=== PATIENT | male | born 1960 | race Caucasian/White ===

== ENCOUNTER 2018-07-15 10:43 | Inpatient (IN) | payer OTHER ==
[2018-07-15 11:22] VITALS: BMI 35.0
--- NOTE | 2018-07-15 14:56 | PN ---
[facility] CIWA - CIWA Score Nausea/Vomitin-No Nausea/No Vomiting Muscle Tremors: 2 Anxiety: 4-Mod. Anxious/Guarded Agitation: 2 Paroxysmal Sweats: No Perspiration Orientation: 0-Oriented Tacttile Disturbances: 3-Moderate Itch/Numb/Burn Auditory Disturbances: 0-None Visual Disturbances: 0-None Headache: 2-Mild CIWA-Ar Total Score: 13
--- NOTE | 2018-07-15 15:03 | HP ---
CIWA Score Nausea/Vomitin-No Nausea/No Vomiting Muscle Tremors: 2 Anxiety: 4-Mod. Anxious/Guarded Agitation: 3 Paroxysmal Sweats: No Perspiration Orientation: 0-Oriented Tacttile Disturbances: 3-Moderate Itch/Numb/Burn Auditory Disturbances: 0-None Visual Disturbances: 0-None Headache: 2-Mild CIWA-Ar Total Score: 14 - Admission Criteria OASAS Guidelines: Admission for Medically Managed Detox: Requires at least one of the followin. CIWA greater than 12 2. Seizures within the past 24 hours 3. Delirium tremens within the past 24 hours 4. Hallucinations within the past 24 hours 5. Acute intervention needed for co occurring medical disorder 6. Acute intervention needed for co occurring psychiatric disorder 7. Severe withdrawal that cannot be handled at a lower level of care (continued vomiting, continued diarrhea, abnormal vital signs) requiring intravenous medication and/or fluids 8. Admission ROS [facility] Chief Complaint: XANAX WITHDRAWAL SYMPTOMS. Allergies/Adverse Reactions: Allergies Allergy/AdvReac Type Severity Reaction Status Date / Time No Known Allergies Allergy Verified 07/15/18 13:17 History of Present Illness: PATIENT PRESENTS WITH XANAX WITHDRAWAL SYMPTOMS. PATIENT WAS PRESCRIBED KLONIPIN IN PAST FOR ANXIETY, LAST PRESCRIPTION MONTHS AGO. PATIENT STATED MEDICATION WAS NOT RELIEVING ALL SYMPTOMS SO HE BEGAN BUYING NON-PRESCRIBED XANAX. PATIENT TAKES UP TO 8MG DAILY. PATIENT'S LAST DOSE OF XANAX WAS THIS MORNING. PATIENT ALSO ON MTD PROGRAM AT [facility]. PATIENT HAS SEALED DOSE OF 34 MG OF MTD WITH HIM-DOSE VERIFIED BY RN. PATIENT DID NOT TAKE DOSE HE FORGOT AFTER TAKING XANAX. THIS IS PATIENT'S FIRST ADMISSION TO DETOX HERE AT [facility]. PATIENT PMH INCLUDES PERIPHERAL NEUROPATHY, INSOMNIA, DM, HTN, VIT B 12 DEFICIENCY, AFOGNAK, ANXIETY AND DEPRESSION. DENIES SI/HI AND SUICIDE ATTEMPTS. PATIENT DENIES HX OF SEIZURES, FALLS AND OVERDOSE. Exam Limitations: No Limitations - Ebola screening Have you traveled outside of the country in the last 21 days: No Have you had contact with anyone from an Ebola affected area: No Have you been sick,other than usual withdrawal symptoms: No Do you have a fever: No - Review of Systems Constitutional: Chills, Night Sweats, Changes in sleep EENT: reports: Nose Congestion Respiratory: reports: No Symptoms reported Cardiac: reports: Palpitations GI: reports: Poor Fluid Intake : reports: No Symptoms Reported Musculoskeletal: reports: Back Pain, Muscle Pain Integumentary: reports: No Symptoms Reported Neuro: reports: Headache, Numbness, Tingling, Tremors Endocrine: reports: No Symptoms Reported Hematology: reports: No Symptoms Reported Psychiatric: reports: Orientated x3, Anxious, Depressed Patient History - Patient Medical History Hx Anemia: Yes (B12 DEFICIENCY) Hx Asthma: No Hx Chronic Obstructive Pulmonary Disease (COPD): No Hx Cancer: No Hx Cardiac Disorders: No Hx Congestive Heart Failure: No Hx Hypertension: Yes (ON MEDS) Hx Hypercholesterolemia: No Hx Pacemaker: No HX Cerebrovascular Accident: No Hx Seizures: No Hx Dementia: No Hx Diabetes: Yes Hx Gastrointestinal Disorders: Yes (GI ULCERS) Hx Liver Disease: No Hx Genitourinary Disorders: No Hx Sexually Transmitted Disorders: No Hx Renal Disease (ESRD): No Hx Thyroid Disease: No Hx Human Immunodeficiency Virus (HIV): No Hx Hepatitis C: No Hx Depression: Yes Hx Suicide Attempt: No Hx Bipolar Disorder: No Hx Schizophrenia: No - Patient Surgical History Past Surgical History: Yes Hx Neurologic Surgery: No Hx Cataract Extraction: No Hx Cardiac Surgery: No Hx Lung Surgery: No Hx Breast Surgery: No Hx Breast Biopsy: No Hx Abdominal Surgery: No Hx Appendectomy: No Hx Cholecystectomy: No Hx Genitourinary Surgery: No Hx Orthopedic Surgery: No Other Surgical History: 3 ABDOMINAL BLEEDING ULCERS Anesthesia Reaction: No - PPD History Previous Implant?: Yes Documented Results: Negative w/o proof PPD to be Administered?: Yes - Smoking Cessation Smoking history: Current every day smoker Have you smoked in the past 12 months: Yes Aproximately how many cigarettes per day: 20 Hx Chewing Tobacco Use: No Initiated information on smoking cessation: Yes 'Breaking Loose' booklet given: 07/15/18 - Substance & Tx. History Hx Alcohol Use: No Hx Substance Use: Yes Substance Use Type: Prescribed, Tranquilizers Hx Substance Use Treatment: Yes (MTD PROGRAM AT [facility]) - Substances Abused Alprazolam (Xanax) Route: Oral Frequency: Daily Amount used: 2-3 TABS Age of first use: 24 Date of Last Use: 07/14/18 Family Disease History - Family Disease History Family History: Unable to Obtain Admission Physical Exam BHS - Vital Signs Vital Signs: Vital Signs - 24 hr 07/15/18 11:12 Temperature 97.4 F L Pulse Rate 75 Respiratory 20 Rate Blood Pressure 158/82 - Physical General Appearance: Yes: Appropriately Dressed, Tremorous, Irritable, Anxious HEENTM: Yes: EOMI, Normocephalic, MARSHALL, Pharynx Normal, Other (AFOGNAK) Respiratory: Yes: Chest Non-Tender, Lungs Clear, Normal Breath Sounds, No Respiratory Distress, No Accessory Muscle Use Neck: Yes: No masses,lesions,Nodules Breast: Yes: Breast Exam Deferred Cardiology: Yes: Regular Rhythm, Regular Rate, S1, S2 Abdominal: Yes: Normal Bowel Sounds, Non Tender, Soft Genitourinary: Yes: Within Normal Limits Back: Yes: Normal Inspection, Muscle Spasm Musculoskeletal: Yes: Back pain, Muscle Pain, Other (UNSTEADY GAIT) Extremities: Yes: Normal Inspection, Non-Tender, Tremors Neurological: Yes: convalescent sitter II-XII NML intact, Fully Oriented, Alert, Motor Strength 5/5, Normal Response, Numbness, Depressed Affect Integumentary: Yes: Normal Color, Dry, Warm Lymphatic: Yes: Within Normal Limits Cleared for Admission [facility] - Detox or Rehab [facility] Level of Care: Medically Managed Detox Regimen/Protocol: Valium [facility] Breath Alcohol Content Breath Alcohol Content: 0 Urine Drug Screen - Results Drug Screen Negative: No Urine Drug Screen Results: OPI-Opiates, BZO-Benzodiazepines, MTD-Methadone
[2018-07-15] MEDS ORDERED: NICOTINE POLACRILEX 2 MG GUM BC PRN (15:19)
[2018-07-15] MEDS ORDERED: ACETAMINOPHEN 325 MG TABLET (FP) PO PRN (15:19)
[2018-07-15] MEDS ORDERED: MAGNESIUM HYDROX 2400MG/30ML ORAL SUSPENSION 30 ML CUP PO PRN (15:19)
[2018-07-15] MEDS ORDERED: guaiFENesin/D-METHORPHAN HB 10 ML UNIT-DOSE CUPS PO PRN (15:19)
[2018-07-15] MEDS ORDERED: LOPERAMIDE HCL 2 MG CAPSULE PO PRN (15:19)
[2018-07-15] MEDS ORDERED: IBUPROFEN 400 MG TABLET (FP) PO PRN (15:19)
[2018-07-15] MEDS ORDERED: MENTHOL/PHENOL 1 EACH UD MM PRN (15:19)
[2018-07-15] MEDS ORDERED: MAG HYDROX/AL HYDROX/SIMETH 30 ML UNIT-DOSE CUP PO PRN (15:19)
[2018-07-15] MEDS ORDERED: hydrOXYzine PAMOATE 50 MG CAPSULE (FP) PO PRN (15:19)
[2018-07-15] MEDS ORDERED: P-EPHED 60MG/TRIPROLIDI 2.5MG TABLET PO PRN (15:19)
[2018-07-15] MEDS ORDERED: MAGNESIUM CITRATE 300 ML BOTTLE PO PRN (15:19)
[2018-07-15] MEDS ORDERED: diazePAM 5 MG TABLET PO ONE (15:40)
[2018-07-15] MEDS ORDERED: METHADONE HCL 10 MG TABLET PO ONE (16:30)
[2018-07-15] MEDS: INSULIN SLIDING SCALE (NOVOLOG) 1 VIAL SQ SCH (17:17)
[2018-07-15 17:37] LABS: URINE APPEARANCE CLEAR; URINE BILIRUBIN NEGATIVE (<2.0 mg/dL); URINE COLOR LTYELLOW; URINE GLUCOSE (UA) 3+ (NEGATIVE); URINE KETONE NEGATIVE (NEGATIVE); URINE LEUK ESTERASE NEGATIVE (NEGATIVE); URINE NITRITE NEGATIVE (NEGATIVE); URINE PROTEIN NEGATIVE (NEGATIVE); URINE UROBILINOGEN NEGATIVE mg/dL (0.2-1.0)
[2018-07-15] MEDS ORDERED: MELATONIN 5 MG TABLETS PO PRN (22:00)
[2018-07-15] MEDS: diazePAM 5 MG TABLET PO SCH (22:24)
[2018-07-15] MEDS: QUEtiapine FUMARATE 100 MG TABLET (FP) PO SCH (22:24)
[2018-07-15] MEDS: PREGABALIN 100 MG CAPSULE PO SCH (22:24)
[2018-07-15] MEDS: THIAMINE HCL 100 MG TABLET (FP) PO SCH (22:24)
[2018-07-16] MEDS: METHADONE HCL 10 MG TABLET PO SCH (06:09)
[2018-07-16] MEDS: diazePAM 5 MG TABLET PO SCH ×3 (06:09→22:32)
[2018-07-16] MEDS: PREGABALIN 100 MG CAPSULE PO SCH ×3 (06:09→22:32)
[2018-07-16] MEDS: INSULIN SLIDING SCALE (NOVOLOG) 1 VIAL SQ SCH ×3 (06:31→17:36)
[2018-07-16] MEDS: diazePAM 5 MG TABLET PO PRN (09:11)
[2018-07-16] MEDS: PANTOPRAZOLE 40 MG TABLET (FP) PO SCH (09:47)
[2018-07-16] MEDS: INSULIN (LEVEMIR) 100 UNITS/ML UNITS SQ SCH (09:48)
[2018-07-16] MEDS: PRENATAL VITAMINS W/ FOLIC ACID TABLET (FP) PO SCH (09:48)
[2018-07-16] MEDS: NICOTINE 21 MG/24 HOURS TOPICAL PATCH TD SCH (09:49)
[2018-07-16] MEDS: HYDROCHLOROTHIAZIDE 25 MG TABLET (FP) PO SCH (09:49)
[2018-07-16] MEDS: LISINOPRIL 20 MG TABLET (FP) PO SCH (09:49)
--- NOTE | 2018-07-16 11:00 | PN ---
S CIWA - CIWA Score Nausea/Vomitin-Mild Nausea/No Vomiting Muscle Tremors: 3 Anxiety: 4-Mod. Anxious/Guarded Agitation: 3 Paroxysmal Sweats: 1-Minimal Palms Moist Orientation: 0-Oriented Tacttile Disturbances: 0-None Auditory Disturbances: 0-None Visual Disturbances: 0-None Headache: 1-Very Mild CIWA-Ar Total Score: 13 BHS Progress Note (SOAP) Subjective: low energy anxiety restlessness tremor sweat poor concentration Objective: 07/16/18 10:59 Vital Signs Temperature 98.1 F 07/16/18 09:26 Pulse Rate 62 07/16/18 09:26 Respiratory Rate 17 07/16/18 09:26 Blood Pressure 85/57 L 07/16/18 09:26 O2 Sat by Pulse Oximetry (%) Laboratory Last Values POC Glucometer 144 UNITS (80-120) 07/16/18 06:06 Urine Color Ltyellow 07/15/18 17:00 Urine Appearance Clear 07/15/18 17:00 Urine pH 6.0 (5.0-8.0) 07/15/18 17:00 Ur Specific [place] 1.009 (1.010-1.035) L 07/15/18 17:00 Urine Protein Negative (NEGATIVE) 07/15/18 17:00 Urine Glucose (UA) 3+ (NEGATIVE) H 07/15/18 17:00 Urine Ketones Negative (NEGATIVE) 07/15/18 17:00 Urine Blood Negative (NEGATIVE) 07/15/18 17:00 Urine Nitrite Negative (NEGATIVE) 07/15/18 17:00 Urine Bilirubin Negative (<2.0 mg/dL) 07/15/18 17:00 Urine Urobilinogen Negative mg/dL (0.2-1.0) 07/15/18 17:00 Ur Leukocyte Esterase Negative (NEGATIVE) 07/15/18 17:00 lab noted Assessment: 07/16/18 11:00 withdrawal sx Plan: continue detox
[2018-07-16 11:09] LABS: HEMATOCRIT 33.6 % (35.4-49); HEMOGLOBIN 11.2 GM/dL (11.7-16.9); MCH 31.9 pg (25.7-33.7); MCHC 33.3 g/dl (32.0-35.9); MEAN CELL VOLUME 95.8 fl (80-96); MEAN PLT VOLUME 8.5 fl (7.5-11.1); PLATELET COUNT 276 K/MM3 (134-434); RBC 3.51 M/mm3 (4.00-5.60); RDW 14.5 % (11.9-15.9); WHITE BLOOD COUNT 5.9 K/mm3 (4.0-10.0)
[2018-07-16 11:27] LABS: ALBUMIN 3.9 g/dl (3.4-5.0); ALK PHOS 96 U/L (45-117); ANION GAP 9 MMOL/L (8-16); BILIRUBIN,TOTAL 0.3 mg/dL (0.2-1); BLOOD UREA NITROGEN 14 mg/dL (7-18); CALCIUM 8.9 mg/dL (8.5-10.1); CHLORIDE 100 mmol/L (98-107); CO2 27 mmol/L (21-32); CREATININE 1.1 mg/dL (0.55-1.3); GLUCOSE,RANDOM 212 mg/dL (74-106); POTASSIUM 4.3 mmol/L (3.5-5.1); SGOT/AST 48 U/L (15-37); SGPT/ALT 38 U/L (13-61); SODIUM 136 mmol/L (136-145); TOT PROT 7.8 g/dl (6.4-8.2)
--- NOTE | 2018-07-16 11:34 | PN ---
BHS Progress Note Note: patient is tearful appears hopelessness and helplessness psychiatric referral
[2018-07-16] MEDS ORDERED: BACITRACIN 0.9 GM PACKET TP ONE (11:50)
--- NOTE | 2018-07-16 12:29 | EKG ---
Test Reason : Blood Pressure : / mmHG Vent. Rate : 068 BPM Atrial Rate : 068 BPM P-R Int : 160 ms QRS Dur : 090 ms QT Int : 436 ms P-R-T Axes : 046 -57 069 degrees QTc Int : 463 ms NORMAL SINUS RHYTHM LEFT ANTERIOR FASCICULAR BLOCK CANNOT RULE OUT ANTERIOR INFARCT , AGE UNDETERMINED ABNORMAL ECG NO PREVIOUS ECGS AVAILABLE Confirmed by CASH SMITH MD ([id number]) on 07/16/2018 12:28:45 PM Referred By: Confirmed By:CASH SMITH MD
--- NOTE | 2018-07-16 14:57 | CONSULT ---
[facility] Psychiatric Consult - Data Date of interview: 07/16/18 Admission source: [facility] Identifying data: Examination deferred. Patient sedated.
[2018-07-16] MEDS: THIAMINE HCL 100 MG TABLET (FP) PO SCH (22:32)
[2018-07-16] MEDS: QUEtiapine FUMARATE 100 MG TABLET (FP) PO SCH (22:32)
[2018-07-17] MEDS: METHADONE HCL 10 MG TABLET PO SCH (06:42)
[2018-07-17] MEDS: PREGABALIN 100 MG CAPSULE PO SCH ×3 (06:42→22:03)
[2018-07-17] MEDS ORDERED: INSULIN SLIDING SCALE (NOVOLOG) 1 VIAL SQ ONE (06:46)
[2018-07-17] MEDS: INSULIN SLIDING SCALE (NOVOLOG) 1 VIAL SQ SCH ×3 (06:46→17:13)
[2018-07-17] MEDS: PRENATAL VITAMINS W/ FOLIC ACID TABLET (FP) PO SCH (09:48)
[2018-07-17] MEDS: diazePAM 5 MG TABLET PO SCH ×2 (09:48→22:03)
[2018-07-17] MEDS: INSULIN (LEVEMIR) 100 UNITS/ML UNITS SQ SCH (09:48)
[2018-07-17] MEDS: NICOTINE 21 MG/24 HOURS TOPICAL PATCH TD SCH (09:48)
[2018-07-17] MEDS: PANTOPRAZOLE 40 MG TABLET (FP) PO SCH (09:49)
[2018-07-17] MEDS: LISINOPRIL 20 MG TABLET (FP) PO SCH (09:49)
[2018-07-17] MEDS: HYDROCHLOROTHIAZIDE 25 MG TABLET (FP) PO SCH (09:49)
--- NOTE | 2018-07-17 14:04 | PN ---
[facility] CIWA - CIWA Score Nausea/Vomitin-Mild Nausea/No Vomiting Muscle Tremors: 2 Anxiety: 3 Agitation: 2 Paroxysmal Sweats: 1-Minimal Palms Moist Orientation: 0-Oriented Tacttile Disturbances: 0-None Auditory Disturbances: 0-None Visual Disturbances: 0-None Headache: 1-Very Mild CIWA-Ar Total Score: 10 S Progress Note (SOAP) Subjective: anxiety restlessness tremor swet Objective: 07/17/18 14:05 Vital Signs Temperature 98.9 F 07/17/18 13:25 Pulse Rate 63 07/17/18 13:25 Respiratory Rate 18 07/17/18 13:25 Blood Pressure 125/63 07/17/18 13:25 O2 Sat by Pulse Oximetry (%) Laboratory Last Values WBC 5.9 K/mm3 (4.0-10.0) 07/16/18 06:00 RBC 3.51 M/mm3 (4.00-5.60) L 07/16/18 06:00 Hgb 11.2 GM/dL (11.7-16.9) L 07/16/18 06:00 Hct 33.6 % (35.4-49) L 07/16/18 06:00 MCV 95.8 fl (80-96) 07/16/18 06:00 MCH 31.9 pg (25.7-33.7) 07/16/18 06:00 MCHC 33.3 g/dl (32.0-35.9) 07/16/18 06:00 RDW 14.5 % (11.9-15.9) 07/16/18 06:00 Plt Count 276 K/MM3 (134-434) 07/16/18 06:00 MPV 8.5 fl (7.5-11.1) 07/16/18 06:00 Sodium 136 mmol/L (136-145) 07/16/18 06:00 Potassium 4.3 mmol/L (3.5-5.1) 07/16/18 06:00 Chloride 100 mmol/L (98-107) 07/16/18 06:00 Carbon Dioxide 27 mmol/L (21-32) 07/16/18 06:00 Anion Gap 9 MMOL/L (8-16) 07/16/18 06:00 BUN 14 mg/dL (7-18) 07/16/18 06:00 Creatinine 1.1 mg/dL (0.55-1.3) 07/16/18 06:00 Creat Clearance w eGFR > 60 (>60) 07/16/18 06:00 POC Glucometer 115 UNITS (80-120) 07/17/18 11:39 Random Glucose 212 mg/dL (74-106) H 07/16/18 06:00 Calcium 8.9 mg/dL (8.5-10.1) 07/16/18 06:00 Total Bilirubin 0.3 mg/dL (0.2-1) 07/16/18 06:00 AST 48 U/L (15-37) H 07/16/18 06:00 ALT 38 U/L (13-61) 07/16/18 06:00 Alkaline Phosphatase 96 U/L (45-117) 07/16/18 06:00 Total Protein 7.8 g/dl (6.4-8.2) 07/16/18 06:00 Albumin 3.9 g/dl (3.4-5.0) 07/16/18 06:00 Urine Color Ltyellow 07/15/18 17:00 Urine Appearance Clear 07/15/18 17:00 Urine pH 6.0 (5.0-8.0) 07/15/18 17:00 Ur Specific [place] 1.009 (1.010-1.035) L 07/15/18 17:00 Urine Protein Negative (NEGATIVE) 07/15/18 17:00 Urine Glucose (UA) 3+ (NEGATIVE) H 07/15/18 17:00 Urine Ketones Negative (NEGATIVE) 07/15/18 17:00 Urine Blood Negative (NEGATIVE) 07/15/18 17:00 Urine Nitrite Negative (NEGATIVE) 07/15/18 17:00 Urine Bilirubin Negative (<2.0 mg/dL) 07/15/18 17:00 Urine Urobilinogen Negative mg/dL (0.2-1.0) 07/15/18 17:00 Ur Leukocyte Esterase Negative (NEGATIVE) 07/15/18 17:00 RPR Titer Nonreactive (NONREACTIVE) 07/16/18 06:00 lab noted Assessment: 07/17/18 14:06 withdrawal sx Plan: continue detox
[2018-07-17] MEDS: THIAMINE HCL 100 MG TABLET (FP) PO SCH (22:03)
[2018-07-17] MEDS: QUEtiapine FUMARATE 100 MG TABLET (FP) PO SCH (22:03)
[2018-07-18] MEDS: diazePAM 5 MG TABLET PO PRN (01:20)
[2018-07-18] MEDS: METHADONE HCL 10 MG TABLET PO SCH (06:13)
[2018-07-18] MEDS: PREGABALIN 100 MG CAPSULE PO SCH (06:15)
[2018-07-18 06:17] VITALS: BP 129/67; PULSE 56; TEMP 98.3
[2018-07-18] MEDS ORDERED: INSULIN SLIDING SCALE (NOVOLOG) 1 VIAL SQ ONE (06:57)
[2018-07-18] MEDS: INSULIN SLIDING SCALE (NOVOLOG) 1 VIAL SQ SCH (06:57)
--- NOTE | 2018-07-18 10:38 | PN ---
BHS Progress Note (SOAP) Subjective: I feel better I want to go home . Objective: 07/18/18 10:35 Vital Signs Temperature 98.3 F 07/18/18 06:16 Pulse Rate 56 L 07/18/18 06:16 Respiratory Rate 18 07/18/18 06:16 Blood Pressure 129/67 07/18/18 06:16 O2 Sat by Pulse Oximetry (%) Laboratory Tests 07/15/18 07/15/18 07/15/18 14:08 17:00 17:01 WBC RBC Hgb Hct MCV MCH MCHC RDW Plt Count MPV Sodium Potassium Chloride Carbon Dioxide Anion Gap BUN Creatinine Creat Clearance w eGFR POC Glucometer 219 221 Random Glucose Calcium Total Bilirubin AST ALT Alkaline Phosphatase Total Protein Albumin Urine Color Ltyellow Urine Appearance Clear Urine pH 6.0 Ur Specific [place] 1.009 L Urine Protein Negative Urine Glucose (UA) 3+ H Urine Ketones Negative Urine Blood Negative Urine Nitrite Negative Urine Bilirubin Negative Urine Urobilinogen Negative Ur Leukocyte Esterase Negative RPR Titer 07/16/18 07/16/18 07/16/18 06:00 06:00 06:00 WBC 5.9 RBC 3.51 L Hgb 11.2 L Hct 33.6 L MCV 95.8 MCH 31.9 MCHC 33.3 RDW 14.5 Plt Count 276 MPV 8.5 Sodium 136 Potassium 4.3 Chloride 100 Carbon Dioxide 27 Anion Gap 9 BUN 14 Creatinine 1.1 Creat Clearance w eGFR > 60 POC Glucometer Random Glucose 212 H Calcium 8.9 Total Bilirubin 0.3 AST 48 H ALT 38 Alkaline Phosphatase 96 Total Protein 7.8 Albumin 3.9 Urine Color Urine Appearance Urine pH Ur Specific [place] Urine Protein Urine Glucose (UA) Urine Ketones Urine Blood Urine Nitrite Urine Bilirubin Urine Urobilinogen Ur Leukocyte Esterase RPR Titer Nonreactive 07/16/18 07/16/18 07/16/18 06:06 11:20 16:15 WBC RBC Hgb Hct MCV MCH MCHC RDW Plt Count MPV Sodium Potassium Chloride Carbon Dioxide Anion Gap BUN Creatinine Creat Clearance w eGFR POC Glucometer 144 98 287 Random Glucose Calcium Total Bilirubin AST ALT Alkaline Phosphatase Total Protein Albumin Urine Color Urine Appearance Urine pH Ur Specific [place] Urine Protein Urine Glucose (UA) Urine Ketones Urine Blood Urine Nitrite Urine Bilirubin Urine Urobilinogen Ur Leukocyte Esterase RPR Titer 07/17/18 07/17/18 07/17/18 06:42 11:39 16:31 WBC RBC Hgb Hct MCV MCH MCHC RDW Plt Count MPV Sodium Potassium Chloride Carbon Dioxide Anion Gap BUN Creatinine Creat Clearance w eGFR POC Glucometer 211 115 350 Random Glucose Calcium Total Bilirubin AST ALT Alkaline Phosphatase Total Protein Albumin Urine Color Urine Appearance Urine pH Ur Specific [place] Urine Protein Urine Glucose (UA) Urine Ketones Urine Blood Urine Nitrite Urine Bilirubin Urine Urobilinogen Ur Leukocyte Esterase RPR Titer 07/18/18 06:12 WBC RBC Hgb Hct MCV MCH MCHC RDW Plt Count MPV Sodium Potassium Chloride Carbon Dioxide Anion Gap BUN Creatinine Creat Clearance w eGFR POC Glucometer 326 Random Glucose Calcium Total Bilirubin AST ALT Alkaline Phosphatase Total Protein Albumin Urine Color Urine Appearance Urine pH Ur Specific [place] Urine Protein Urine Glucose (UA) Urine Ketones Urine Blood Urine Nitrite Urine Bilirubin Urine Urobilinogen Ur Leukocyte Esterase RPR Titer pt aox3 in nad ambulating Assessment: 07/18/18 10:36 detox completed dm anemia pt states he will f/up his medical problems with PMD and will speak to counselors at his [facility]. 07/18/18 10:37 Plan: d/ c to home early f/up with PMD f/up at [facility] increase fluids
--- NOTE | 2018-07-18 10:39 | DS ---
[facility] Detox Discharge Summary Admission Date: 07/15/18 Discharge Date: 07/18/18 - History Present History: Sedative Dependence, MMTP - Physical Exam Results Vital Signs: Vital Signs Temperature 98.3 F 07/18/18 06:16 Pulse Rate 56 L 07/18/18 06:16 Respiratory Rate 18 07/18/18 06:16 Blood Pressure 129/67 07/18/18 06:16 O2 Sat by Pulse Oximetry (%) - Treatment Hospital Course: Detox Protocol Followed, Detoxed Safely, Responded well, Discharged Condition Good - Medication Discharge Medications: Ambulatory Orders Acetaminophen with Codeine [Acetaminophen-Cod #4 Tablet] 1 each PO Q12H Duloxetine HCl [Cymbalta -] 30 mg PO DAILY 07/15/18 Insulin Glargine,Hum.rec.anlog [Basaglar Kwikpen U-100] 36 unit SQ DAILY Lisinopril 20 mg PO DAILY 07/15/18 Lisinopril/Hydrochlorothiazide [Lisinopril-Hctz 20-25 mg Tab] 1 each PO DAILY Methadone [Dolophine -] 34 mg PO DAILY 07/15/18 Pantoprazole Sodium 40 mg PO DAILY 07/15/18 Pregabalin [Lyrica -] 100 mg PO TID 07/15/18 Quetiapine Fumarate [Seroquel -] 100 mg PO HS 07/15/18 Naloxone HCl [Narcan] 4 mg NS PRN PRN #1 kit 07/18/18 - Diagnosis (1) Anemia Status: Chronic Qualifiers: Anemia type: unspecified type Qualified Code(s): D64.9 - Anemia, unspecified - AMA Did Patient Leave Against Medical Advice: No
[2018-07-19] MEDS ORDERED: diazePAM 5 MG TABLET PO SCH (10:00)
== END 2018-07-18 09:10 | disposition home or self-care (01) | DRG 773 ==
LOC: YASAS 10:43 → Y3N 15:36
PROC: HZ2ZZZZ Detoxification Services for Substance Abuse Treatment (ICD-10-PCS; principal; 2018-07-15)
DX: F13.20 Sedative, hypnotic or anxiolytic dependence, uncomplicated (principal); F11.20 Opioid dependence, uncomplicated; F41.9 Anxiety disorder, unspecified; G62.9 Polyneuropathy, unspecified; D51.9 Vitamin B12 deficiency anemia, unspecified; I10 Essential (primary) hypertension; E11.9 Type 2 diabetes mellitus without complications; Z79.4 Long term (current) use of insulin; R45.89 Other symptoms and signs involving emotional state; Z87.19 Personal history of other diseases of the digestive system; Z72.0 Tobacco use
CPT/HCPCS: 36415; 80053; 81003; 82962; 85027; 86593; 93005; 93010

== ENCOUNTER 2019-01-20 12:33 | Inpatient (IN) | payer OTHER ==
[2019-01-20 13:29] VITALS: BMI 34.7
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
[2019-01-20] MEDS ORDERED: hydrOXYzine PAMOATE 25 MG CAPSULE (FP) PO PRN (17:06)
[2019-01-20] MEDS ORDERED: BISMUTH SUBSALICYLATE 524 MG/30 ML UD PO PRN (17:06)
[2019-01-20] MEDS ORDERED: MAGNESIUM HYDROX 2400MG/30ML ORAL SUSPENSION 30 ML CUP PO PRN (17:06)
[2019-01-20] MEDS ORDERED: MAG HYDROX/AL HYDROX/SIMETH 30 ML UNIT-DOSE CUP PO PRN (17:06)
[2019-01-20] MEDS ORDERED: METHOCARBAMOL 500 MG TABLET PO PRN (17:06)
[2019-01-20] MEDS ORDERED: ACETAMINOPHEN 325 MG TABLET (FP) PO PRN ×2 (17:06)
[2019-01-20] MEDS ORDERED: MELATONIN 5 MG TABLETS PO PRN (17:06)
[2019-01-20] MEDS ORDERED: diazePAM 5 MG TABLET PO PRN (17:06)
[2019-01-20] MEDS ORDERED: MENTHOL/PHENOL 1 EACH UD MM PRN (17:06)
[2019-01-20] MEDS ORDERED: ONDANSETRON *ODT* 4 MG TABLET SL PRN (17:06)
[2019-01-20] MEDS ORDERED: IBUPROFEN 400 MG TABLET (FP) PO PRN (17:06)
[2019-01-20] MEDS ORDERED: MAGNESIUM CITRATE 300 ML BOTTLE PO PRN (17:06)
[2019-01-20] MEDS: INSULIN (LEVEMIR) 100 UNITS/ML UNITS SQ SCH (21:34)
[2019-01-20] MEDS: DULoxetine HCL 30 MG CAPSULE.DR PO SCH (21:49)
[2019-01-20] MEDS: PREGABALIN 100 MG CAPSULE PO SCH (21:49)
[2019-01-20] MEDS: THIAMINE HCL 100 MG TABLET (FP) PO SCH (21:49)
[2019-01-20] MEDS: diazePAM 5 MG TABLET PO SCH (21:55)
[2019-01-20] MEDS ORDERED: QUEtiapine FUMARATE 200 MG TABLET PO SCH (22:00)
[2019-01-20] MEDS: INSULIN SLIDING SCALE (NOVOLOG) 1 VIAL SQ SCH (22:02)
[2019-01-21] MEDS: PREGABALIN 100 MG CAPSULE PO SCH ×3 (06:32→22:12)
[2019-01-21] MEDS: diazePAM 5 MG TABLET PO SCH ×3 (06:32→22:12)
[2019-01-21] MEDS ORDERED: INSULIN SLIDING SCALE (NOVOLOG) 1 VIAL SQ SCH (07:00)
[2019-01-21] MEDS: INSULIN SLIDING SCALE (NOVOLOG) 1 VIAL SQ SCH ×4 (07:09→22:14)
[2019-01-21] MEDS ORDERED: METHADONE HCL 10 MG TABLET PO SCH (09:15)
[2019-01-21] MEDS ORDERED: METHADONE 30 MG, METHADONE 5 MG PO SCH (09:25)
[2019-01-21] MEDS ORDERED: METHADONE HCL 10 MG TABLET ONE (10:03)
[2019-01-21] MEDS ORDERED: METHADONE HCL 5 MG TABLET ONE (10:04)
[2019-01-21] MEDS: METHADONE 30 MG, METHADONE 5 MG PO SCH (10:07)
[2019-01-21] MEDS: LISINOPRIL 20 MG TABLET (FP) PO SCH (11:08)
[2019-01-21] MEDS: PANTOPRAZOLE 40 MG TABLET (FP) PO SCH (11:08)
[2019-01-21] MEDS: PRENATAL VITAMINS W/ FOLIC ACID TABLET (FP) PO SCH (11:10)
[2019-01-21] MEDS: NICOTINE 21 MG/24 HOURS TOPICAL PATCH TD SCH (11:17)
[2019-01-21] MEDS: CYANOCOBALAMIN 1,000 MCG TABLET (FP) PO SCH (11:17)
[2019-01-21 11:25] LABS: HEMATOCRIT 33.2 % (35.4-49); HEMOGLOBIN 11.4 GM/dL (11.7-16.9); MCH 32.6 pg (25.7-33.7); MCHC 34.5 g/dl (32.0-35.9); MEAN CELL VOLUME 94.4 fl (80-96); PLATELET COUNT 239 K/MM3 (134-434); RBC 3.51 M/mm3 (4.00-5.60); RDW 14.9 % (11.9-15.9)
[2019-01-21 11:43] LABS: ALBUMIN 3.3 g/dl (3.4-5.0); BILIRUBIN,TOTAL 0.4 mg/dL (0.2-1); BLOOD UREA NITROGEN 30.2 mg/dL (7-18); CALCIUM 8.8 mg/dL (8.5-10.1); CREATININE 1.1 mg/dL (0.55-1.3); POTASSIUM 5.2 mmol/L (3.5-5.1); TOT PROT 6.9 g/dl (6.4-8.2)
--- NOTE | 2019-01-21 14:23 | PN ---
S CIWA - CIWA Score Nausea/Vomitin-Mild Nausea/No Vomiting Muscle Tremors: 1-None Visible, but [place] Anxiety: 1-Mildly Anxious Agitation: 1-Slight > Activity Paroxysmal Sweats: No Perspiration Orientation: 0-Oriented Tacttile Disturbances: 0-None Auditory Disturbances: 0-None Visual Disturbances: 0-None Headache: 0-None Present CIWA-Ar Total Score: 4 BHS Progress Note (SOAP) Subjective: pt on a xanax withdrawal protocol. O: Laboratory Tests 01/20/19 01/21/19 01/21/19 21:30 06:30 07:30 WBC 6.0 RBC 3.51 L Hgb 11.4 L Hct 33.2 L MCV 94.4 MCH 32.6 MCHC 34.5 RDW 14.9 Plt Count 239 MPV 8.0 Sodium Potassium Chloride Carbon Dioxide Anion Gap BUN Creatinine Est GFR (CKD-EPI)AfAm Est GFR (CKD-EPI)NonAf POC Glucometer 459 213 Random Glucose Calcium Total Bilirubin AST ALT Alkaline Phosphatase Total Protein Albumin RPR Titer 01/21/19 01/21/19 01/21/19 07:30 07:30 11:12 WBC RBC Hgb Hct MCV MCH MCHC RDW Plt Count MPV Sodium 138 Potassium 5.2 H Chloride 102 Carbon Dioxide 31 Anion Gap 4 L BUN 30.2 H Creatinine 1.1 Est GFR (CKD-EPI)AfAm 84.71 Est GFR (CKD-EPI)NonAf 73.09 POC Glucometer 146 Random Glucose 212 H Calcium 8.8 Total Bilirubin 0.4 AST 32 ALT 25 Alkaline Phosphatase 117 Total Protein 6.9 Albumin 3.3 L RPR Titer Nonreactive mild anemia a/p: continue xanax withdrawal protocol, on methandone MAT 35mg
[2019-01-21] MEDS: THIAMINE HCL 100 MG TABLET (FP) PO SCH (22:12)
[2019-01-21] MEDS: QUEtiapine FUMARATE 100 MG TABLET (FP) PO SCH (22:12)
[2019-01-21] MEDS: DULoxetine HCL 30 MG CAPSULE.DR PO SCH (22:12)
[2019-01-21] MEDS: INSULIN (LEVEMIR) 100 UNITS/ML UNITS SQ SCH (22:12)
[2019-01-22] MEDS ORDERED: METHADONE HCL 10 MG TABLET ONE (04:57)
[2019-01-22] MEDS ORDERED: METHADONE HCL 5 MG TABLET ONE (04:58)
[2019-01-22] MEDS: PREGABALIN 100 MG CAPSULE PO SCH ×3 (06:49→22:21)
[2019-01-22] MEDS: METHADONE 30 MG, METHADONE 5 MG PO SCH (06:50)
[2019-01-22] MEDS: INSULIN SLIDING SCALE (NOVOLOG) 1 VIAL SQ SCH ×4 (07:25→21:32)
[2019-01-22] MEDS: diazePAM 5 MG TABLET PO SCH ×2 (10:31→22:21)
[2019-01-22] MEDS: LISINOPRIL 20 MG TABLET (FP) PO SCH (10:31)
[2019-01-22] MEDS: PRENATAL VITAMINS W/ FOLIC ACID TABLET (FP) PO SCH (10:31)
[2019-01-22] MEDS: PANTOPRAZOLE 40 MG TABLET (FP) PO SCH (10:31)
[2019-01-22] MEDS: NICOTINE 21 MG/24 HOURS TOPICAL PATCH TD SCH (10:32)
[2019-01-22] MEDS: CYANOCOBALAMIN 1,000 MCG TABLET (FP) PO SCH (10:33)
--- NOTE | 2019-01-22 12:48 | PN ---
S CIWA - CIWA Score Nausea/Vomitin Muscle Tremors: 2 Anxiety: 2 Agitation: 2 Paroxysmal Sweats: 1-Minimal Palms Moist Orientation: 0-Oriented Tacttile Disturbances: 1-Very Mild Itch/Numbness Auditory Disturbances: 1-Very Mild Visual Disturbances: 0-None Headache: 1-Very Mild CIWA-Ar Total Score: 12 BHS Progress Note (SOAP) Subjective: alert,irritable,anxious,interrupted sleep,tremor Objective: 01/22/19 12:46 Vital Signs Temperature 97.2 F L 01/22/19 09:21 Pulse Rate 64 01/22/19 09:21 Respiratory Rate 18 01/22/19 09:21 Blood Pressure 148/71 01/22/19 09:21 O2 Sat by Pulse Oximetry (%) 01/22/19 12:46 Laboratory Last Values WBC 6.0 K/mm3 (4.0-10.0) 01/21/19 07:30 RBC 3.51 M/mm3 (4.00-5.60) L 01/21/19 07:30 Hgb 11.4 GM/dL (11.7-16.9) L 01/21/19 07:30 Hct 33.2 % (35.4-49) L 01/21/19 07:30 MCV 94.4 fl (80-96) 01/21/19 07:30 MCH 32.6 pg (25.7-33.7) 01/21/19 07:30 MCHC 34.5 g/dl (32.0-35.9) 01/21/19 07:30 RDW 14.9 % (11.9-15.9) 01/21/19 07:30 Plt Count 239 K/MM3 (134-434) 01/21/19 07:30 MPV 8.0 fl (7.5-11.1) 01/21/19 07:30 Sodium 138 mmol/L (136-145) 01/21/19 07:30 Potassium 5.2 mmol/L (3.5-5.1) H 01/21/19 07:30 Chloride 102 mmol/L (98-107) 01/21/19 07:30 Carbon Dioxide 31 mmol/L (21-32) 01/21/19 07:30 Anion Gap 4 MMOL/L (8-16) L 01/21/19 07:30 BUN 30.2 mg/dL (7-18) H 01/21/19 07:30 Creatinine 1.1 mg/dL (0.55-1.3) 01/21/19 07:30 Est GFR (CKD-EPI)AfAm 84.71 01/21/19 07:30 Est GFR (CKD-EPI)NonAf 73.09 01/21/19 07:30 POC Glucometer 116 UNITS (80-120) 01/22/19 11:11 Random Glucose 212 mg/dL (74-106) H 01/21/19 07:30 Calcium 8.8 mg/dL (8.5-10.1) 01/21/19 07:30 Total Bilirubin 0.4 mg/dL (0.2-1) 01/21/19 07:30 AST 32 U/L (15-37) 01/21/19 07:30 ALT 25 U/L (13-61) 01/21/19 07:30 Alkaline Phosphatase 117 U/L (45-117) 01/21/19 07:30 Total Protein 6.9 g/dl (6.4-8.2) 01/21/19 07:30 Albumin 3.3 g/dl (3.4-5.0) L 01/21/19 07:30 RPR Titer Nonreactive (NONREACTIVE) 01/21/19 07:30 Assessment: 01/22/19 12:47 withdrawal symptom Plan: continue detox,bgm monitoring,discharge in am
[2019-01-22] MEDS: QUEtiapine FUMARATE 100 MG TABLET (FP) PO SCH (22:21)
[2019-01-22] MEDS: INSULIN (LEVEMIR) 100 UNITS/ML UNITS SQ SCH (22:21)
[2019-01-22] MEDS: DULoxetine HCL 30 MG CAPSULE.DR PO SCH (22:21)
[2019-01-22] MEDS: THIAMINE HCL 100 MG TABLET (FP) PO SCH (22:21)
[2019-01-23] MEDS ORDERED: METHADONE HCL 10 MG TABLET ONE (04:30)
[2019-01-23] MEDS ORDERED: METHADONE HCL 5 MG TABLET ONE (04:30)
[2019-01-23] MEDS ORDERED: diazePAM 5 MG TABLET PO SCH (06:00)
[2019-01-23] MEDS: PREGABALIN 100 MG CAPSULE PO SCH (07:01)
[2019-01-23] MEDS: METHADONE 30 MG, METHADONE 5 MG PO SCH (07:01)
[2019-01-23 07:03] VITALS: BP 141/63; PULSE 50; TEMP 97.3
[2019-01-23] MEDS: INSULIN SLIDING SCALE (NOVOLOG) 1 VIAL SQ SCH (07:05)
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
== END 2019-01-23 09:14 | disposition home or self-care (01) | DRG 773 ==
LOC: YASAS 12:33 → Y3N 18:15
PROVIDERS: ADMIT Surgery; ATTEND Surgery
PROC: HZ2ZZZZ Detoxification Services for Substance Abuse Treatment (ICD-10-PCS; principal; 2019-01-20)
DX: F13.230 Sedative, hypnotic or anxiolytic dependence with withdrawal, uncomplicated (principal); F11.20 Opioid dependence, uncomplicated; F17.210 Nicotine dependence, cigarettes, uncomplicated; F32.9 Major depressive disorder, single episode, unspecified; I10 Essential (primary) hypertension; D64.9 Anemia, unspecified; D51.9 Vitamin B12 deficiency anemia, unspecified; E11.9 Type 2 diabetes mellitus without complications; Z79.4 Long term (current) use of insulin; H91.93 Unspecified hearing loss, bilateral; Z97.4 Presence of external hearing-aid
CPT/HCPCS: 36415; 80053; 82962; 85027; 86593

== ENCOUNTER 2019-06-15 11:41 | Inpatient (IN) | payer OTHER ==
[2019-06-15 13:14] VITALS: BMI 34.1
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
[2019-06-15] MEDS ORDERED: ACETAMINOPHEN 325 MG TABLET (FP) PO PRN ×2 (15:21)
[2019-06-15] MEDS ORDERED: METHOCARBAMOL 500 MG TABLET PO PRN (15:21)
[2019-06-15] MEDS ORDERED: MELATONIN 5 MG TABLETS PO PRN (15:21)
[2019-06-15] MEDS ORDERED: hydrOXYzine PAMOATE 25 MG CAPSULE (FP) PO PRN (15:21)
[2019-06-15] MEDS ORDERED: MAGNESIUM HYDROX 2400MG/30ML ORAL SUSPENSION 30 ML CUP PO PRN (15:21)
[2019-06-15] MEDS ORDERED: MENTHOL/PHENOL 1 EACH UD MM PRN (15:21)
[2019-06-15] MEDS ORDERED: IBUPROFEN 400 MG TABLET (FP) PO PRN (15:21)
[2019-06-15] MEDS ORDERED: MAGNESIUM CITRATE 300 ML BOTTLE PO PRN (15:21)
[2019-06-15] MEDS ORDERED: BISMUTH SUBSALICYLATE 524 MG/30 ML UD PO PRN (15:21)
[2019-06-15] MEDS ORDERED: MAG HYDROX/AL HYDROX/SIMETH 30 ML UNIT-DOSE CUP PO PRN (15:21)
[2019-06-15] MEDS ORDERED: diazePAM 5 MG TABLET PO PRN (15:22)
[2019-06-15] MEDS ORDERED: NICOTINE POLACRILEX 2 MG GUM BUC PRN (15:25)
--- NOTE | 2019-06-15 16:01 | PN ---
Teaching Attending Note Name of Resident: Nathaly Pelletier ATTENDING PHYSICIAN STATEMENT I saw and evaluated the patient. I reviewed the resident's note and discussed the case with the resident. I agree with the resident's findings and plan as documented. SUBJECTIVE: for inpatient detox from xanax,alcohol,mmtp 49 mgs/day,last medicated today, idm,hard of hearing OBJECTIVE: Vital Signs Temperature 98.1 F 06/15/19 15:35 Pulse Rate 64 06/15/19 15:35 Respiratory Rate 20 06/15/19 15:35 Blood Pressure 127/70 06/15/19 15:35 O2 Sat by Pulse Oximetry (%) ASSESSMENT AND PLAN:this 59 years old male with alcohol and xanax dependence, seeking detox,mtp 49 mgs/day last medicated today,hard of hearing,iddm,need inpatient detox valium regimen
[2019-06-15] MEDS: INSULIN SLIDING SCALE (NOVOLOG) 1 VIAL SQ SCH ×2 (16:26→22:14)
[2019-06-15] MEDS ORDERED: diazePAM 5 MG TABLET PO ONE (16:30)
[2019-06-15] MEDS: LISINOPRIL 20 MG TABLET (FP) PO SCH (16:55)
[2019-06-15] MEDS ORDERED: diphenhydrAMINE HCL 25 MG CAPSULE (FP) PO ONE (21:11)
[2019-06-15] MEDS: diphenhydrAMINE HCL 50 MG CAPSULE PO SCH (22:13)
[2019-06-15] MEDS: THIAMINE HCL 100 MG TABLET (FP) PO SCH (22:13)
[2019-06-15] MEDS: DULoxetine HCL 30 MG CAPSULE.DR PO SCH (22:13)
[2019-06-15] MEDS: diazePAM 5 MG TABLET PO SCH (22:13)
[2019-06-15] MEDS: QUEtiapine FUMARATE 200 MG TABLET PO SCH (22:14)
[2019-06-16] MEDS: diazePAM 5 MG TABLET PO SCH ×3 (06:21→22:25)
[2019-06-16] MEDS: INSULIN SLIDING SCALE (NOVOLOG) 1 VIAL SQ SCH ×4 (06:28→21:31)
[2019-06-16] MEDS ORDERED: METHADONE HCL 10 MG TABLET PO ONE (09:09)
[2019-06-16] MEDS ORDERED: METHADONE 40 MG, METHADONE 10 MG PO ONE (09:35)
[2019-06-16 09:36] LABS: HEMATOCRIT 33.1 % (35.4-49); HEMOGLOBIN 11.1 GM/dL (11.7-16.9); MCH 32.4 pg (25.7-33.7); MCHC 33.7 g/dl (32.0-35.9); MEAN CELL VOLUME 96.2 fl (80-96); PLATELET COUNT 223 K/MM3 (134-434); RBC 3.44 M/mm3 (4.00-5.60); RDW 14.1 % (11.9-15.9); WHITE BLOOD COUNT 5.4 K/mm3 (4.0-10.0)
[2019-06-16] MEDS ORDERED: METHADONE HCL 10 MG TABLET ONE (09:49)
[2019-06-16] MEDS ORDERED: METHADONE HCL 40 MG DISPERSABLE TABLET ONE (09:50)
[2019-06-16] MEDS: LISINOPRIL 20 MG TABLET (FP) PO SCH (09:56)
[2019-06-16] MEDS: PRENATAL VITAMINS W/ FOLIC ACID TABLET (FP) PO SCH (09:56)
[2019-06-16] MEDS ORDERED: NICOTINE 7 MG/24 HOURS TOPICAL PATCH TD SCH (10:00)
[2019-06-16 10:23] LABS: ALBUMIN 3.2 g/dl (3.4-5.0); BILIRUBIN,TOTAL 0.4 mg/dL (0.2-1); BLOOD UREA NITROGEN 22.6 mg/dL (7-18); CALCIUM 8.8 mg/dL (8.5-10.1); CREATININE 0.8 mg/dL (0.55-1.3); POTASSIUM 4.4 mmol/L (3.5-5.1); TOT PROT 6.5 g/dl (6.4-8.2)
--- NOTE | 2019-06-16 13:47 | PN ---
S CIWA - CIWA Score Nausea/Vomitin-No Nausea/No Vomiting Muscle Tremors: 3 Anxiety: 3 Agitation: 3 Paroxysmal Sweats: 3 Orientation: 0-Oriented Tacttile Disturbances: 0-None Auditory Disturbances: 0-None Visual Disturbances: 0-None Headache: 0-None Present CIWA-Ar Total Score: 12 BHS Progress Note (SOAP) Subjective: sweats HOOP[place] tired interrupted sleep Objective: 06/16/19 13:46 Vital Signs Temperature 98.1 F 06/16/19 13:05 Pulse Rate 61 06/16/19 13:05 Respiratory Rate 18 06/16/19 13:05 Blood Pressure 133/67 06/16/19 13:05 O2 Sat by Pulse Oximetry (%) Laboratory Tests 06/15/19 06/15/19 06/16/19 15:14 16:22 06:26 WBC RBC Hgb Hct MCV MCH MCHC RDW Plt Count MPV Sodium Potassium Chloride Carbon Dioxide Anion Gap BUN Creatinine Est GFR (CKD-EPI)AfAm Est GFR (CKD-EPI)NonAf POC Glucometer 166 133 156 Random Glucose Calcium Total Bilirubin AST ALT Alkaline Phosphatase Total Protein Albumin RPR Titer 06/16/19 06/16/19 06/16/19 07:20 07:20 07:20 WBC 5.4 RBC 3.44 L Hgb 11.1 L Hct 33.1 L MCV 96.2 H MCH 32.4 MCHC 33.7 RDW 14.1 Plt Count 223 MPV 8.0 Sodium 139 Potassium 4.4 Chloride 105 Carbon Dioxide 32 Anion Gap 2 L BUN 22.6 H Creatinine 0.8 Est GFR (CKD-EPI)AfAm 112.53 Est GFR (CKD-EPI)NonAf 97.10 POC Glucometer Random Glucose 144 H Calcium 8.8 Total Bilirubin 0.4 AST 22 ALT 24 Alkaline Phosphatase 86 Total Protein 6.5 Albumin 3.2 L RPR Titer Nonreactive 06/16/19 11:40 WBC RBC Hgb Hct MCV MCH MCHC RDW Plt Count MPV Sodium Potassium Chloride Carbon Dioxide Anion Gap BUN Creatinine Est GFR (CKD-EPI)AfAm Est GFR (CKD-EPI)NonAf POC Glucometer 124 Random Glucose Calcium Total Bilirubin AST ALT Alkaline Phosphatase Total Protein Albumin RPR Titer labs noted aaox3 ambulating no acute distress Assessment: 06/16/19 13:46 withdrawal sx Plan: continue detox increase fluids
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
[2019-06-16] MEDS ORDERED: diphenhydrAMINE HCL 25 MG CAPSULE (FP) PO ONE (20:38)
[2019-06-16] MEDS: QUEtiapine FUMARATE 200 MG TABLET PO SCH (22:25)
[2019-06-16] MEDS: diphenhydrAMINE HCL 50 MG CAPSULE PO SCH (22:25)
[2019-06-16] MEDS: THIAMINE HCL 100 MG TABLET (FP) PO SCH (22:26)
[2019-06-16] MEDS: DULoxetine HCL 30 MG CAPSULE.DR PO SCH (22:26)
[2019-06-16] MEDS: SUVOREXANT 10 MG TABLET PO PRN (23:53)
[2019-06-17] MEDS ORDERED: METHADONE HCL 10 MG TABLET ONE (04:33)
[2019-06-17] MEDS ORDERED: METHADONE HCL 40 MG DISPERSABLE TABLET ONE (04:33)
[2019-06-17] MEDS ORDERED: METHADONE HCL 40 MG DISPERSABLE TABLET PO SCH (06:00)
[2019-06-17] MEDS: diazePAM 5 MG TABLET PO SCH ×2 (07:00→18:13)
[2019-06-17] MEDS: METHADONE 40 MG, METHADONE 10 MG PO SCH (07:01)
[2019-06-17] MEDS: INSULIN SLIDING SCALE (NOVOLOG) 1 VIAL SQ SCH ×4 (07:25→21:13)
[2019-06-17] MEDS ORDERED: INSULIN SLIDING SCALE (NOVOLOG) 1 VIAL SQ ONE ×2 (08:03→11:34)
--- NOTE | 2019-06-17 09:07 | PN ---
[facility] CIWA - CIWA Score Nausea/Vomitin-No Nausea/No Vomiting Muscle Tremors: 1-None Visible, but [place] Anxiety: 2 Agitation: 2 Paroxysmal Sweats: No Perspiration Orientation: 0-Oriented Tacttile Disturbances: 1-Very Mild Itch/Numbness Auditory Disturbances: 0-None Visual Disturbances: 0-None Headache: 1-Very Mild CIWA-Ar Total Score: 7 BHS Progress Note (SOAP) Subjective: alert,irritable,anxious,interrupted sleep,pain in the body Objective: 06/17/19 09:07 Vital Signs Temperature 97.7 F 06/17/19 07:21 Pulse Rate 52 L 06/17/19 07:21 Respiratory Rate 18 06/17/19 07:21 Blood Pressure 132/52 L 06/17/19 07:21 O2 Sat by Pulse Oximetry (%) 06/17/19 09:07 Laboratory Last Values WBC 5.4 K/mm3 (4.0-10.0) 06/16/19 07:20 RBC 3.44 M/mm3 (4.00-5.60) L 06/16/19 07:20 Hgb 11.1 GM/dL (11.7-16.9) L 06/16/19 07:20 Hct 33.1 % (35.4-49) L 06/16/19 07:20 MCV 96.2 fl (80-96) H 06/16/19 07:20 MCH 32.4 pg (25.7-33.7) 06/16/19 07:20 MCHC 33.7 g/dl (32.0-35.9) 06/16/19 07:20 RDW 14.1 % (11.9-15.9) 06/16/19 07:20 Plt Count 223 K/MM3 (134-434) 06/16/19 07:20 MPV 8.0 fl (7.5-11.1) 06/16/19 07:20 Sodium 139 mmol/L (136-145) 06/16/19 07:20 Potassium 4.4 mmol/L (3.5-5.1) 06/16/19 07:20 Chloride 105 mmol/L (98-107) 06/16/19 07:20 Carbon Dioxide 32 mmol/L (21-32) 06/16/19 07:20 Anion Gap 2 MMOL/L (8-16) L 06/16/19 07:20 BUN 22.6 mg/dL (7-18) H 06/16/19 07:20 Creatinine 0.8 mg/dL (0.55-1.3) 06/16/19 07:20 Est GFR (CKD-EPI)AfAm 112.53 06/16/19 07:20 Est GFR (CKD-EPI)NonAf 97.10 06/16/19 07:20 POC Glucometer 189 UNITS (80-120) 06/17/19 07:21 Random Glucose 144 mg/dL (74-106) H 06/16/19 07:20 Calcium 8.8 mg/dL (8.5-10.1) 06/16/19 07:20 Total Bilirubin 0.4 mg/dL (0.2-1) 06/16/19 07:20 AST 22 U/L (15-37) 06/16/19 07:20 ALT 24 U/L (13-61) 06/16/19 07:20 Alkaline Phosphatase 86 U/L (45-117) 06/16/19 07:20 Total Protein 6.5 g/dl (6.4-8.2) 06/16/19 07:20 Albumin 3.2 g/dl (3.4-5.0) L 06/16/19 07:20 RPR Titer Nonreactive (NONREACTIVE) 06/16/19 07:20 Assessment: 06/17/19 09:07 withdrawal symptom Plan: continue detox,bgm monitoring with insulin coverage,possible discharge in am
[2019-06-17] MEDS: PRENATAL VITAMINS W/ FOLIC ACID TABLET (FP) PO SCH (11:20)
[2019-06-17] MEDS: LISINOPRIL 20 MG TABLET (FP) PO SCH (11:20)
[2019-06-17] MEDS ORDERED: diphenhydrAMINE HCL 25 MG CAPSULE (FP) PO ONE (20:27)
[2019-06-17 21:15] VITALS: BP 135/62; PULSE 58; TEMP 97.9
[2019-06-17] MEDS: SUVOREXANT 10 MG TABLET PO PRN (22:16)
[2019-06-17] MEDS: QUEtiapine FUMARATE 200 MG TABLET PO SCH (22:17)
[2019-06-17] MEDS: diphenhydrAMINE HCL 50 MG CAPSULE PO SCH (22:17)
[2019-06-17] MEDS: DULoxetine HCL 30 MG CAPSULE.DR PO SCH (22:17)
[2019-06-17] MEDS: THIAMINE HCL 100 MG TABLET (FP) PO SCH (22:17)
[2019-06-18] MEDS ORDERED: METHADONE HCL 10 MG TABLET ONE (05:25)
[2019-06-18] MEDS ORDERED: METHADONE HCL 40 MG DISPERSABLE TABLET ONE (05:25)
[2019-06-18] MEDS ORDERED: diazePAM 5 MG TABLET PO ONE (06:00)
[2019-06-18] MEDS: METHADONE 40 MG, METHADONE 10 MG PO SCH (07:19)
[2019-06-18] MEDS: INSULIN SLIDING SCALE (NOVOLOG) 1 VIAL SQ SCH (07:21)
[2019-06-18] MEDS ORDERED: INSULIN SLIDING SCALE (NOVOLOG) 1 VIAL SQ ONE (07:23)
--- NOTE | 2019-06-18 08:47 | DS ---
[facility] Detox Discharge Summary Admission Date: 06/15/19 Discharge Date: 06/18/19 - History Present History: Alcohol Dependence, Sedative Dependence, MMTP - Physical Exam Results Vital Signs: Vital Signs Temperature 97.9 F 06/17/19 21:13 Pulse Rate 58 L 06/17/19 21:13 Respiratory Rate 18 06/18/19 00:30 Blood Pressure 135/62 06/17/19 21:13 O2 Sat by Pulse Oximetry (%) - Treatment Hospital Course: Detox Protocol Followed, Detoxed Safely, Responded well, Discharged Condition Good, Rehab Referral Accepted Patient has Accepted a Rehab Referral to: referred to MMT program - Medication Discharge Medications: Ambulatory Orders Duloxetine HCl [Cymbalta -] 30 mg PO HS 07/15/18 Insulin Glargine,Hum.rec.anlog [Basaglar Kwikpen U-100] 65 unit SQ DAILY Lisinopril 40 mg PO DAILY 07/15/18 Pantoprazole Sodium 40 mg PO DAILY 07/15/18 Quetiapine Fumarate [Seroquel -] 100 mg PO HS 07/15/18 Cyanocobalamin [Vitamin B12 -] 2,500 mcg PO DAILY 01/20/19 Diphenhydramine [Benadryl -] 50 mg PO HS 01/20/19 - Diagnosis (1) Alcohol dependence, uncomplicated Current Visit: Yes Status: Chronic (2) Cannabis abuse Current Visit: Yes Status: Chronic (3) Opioid dependence on agonist therapy Current Visit: Yes Status: Acute (4) Nicotine dependence Current Visit: Yes Status: Chronic Qualifiers: Nicotine product type: cigarettes Substance use status: uncomplicated Qualified Code(s): F17.210 - Nicotine dependence, cigarettes, uncomplicated (5) PTSD (post-traumatic stress disorder) Current Visit: Yes Status: Chronic (6) Anxiety Current Visit: No Status: Acute (7) Sedative hypnotic or anxiolytic dependence Current Visit: No Status: Acute (8) Anemia Current Visit: No Status: Chronic Qualifiers: Anemia type: unspecified type Qualified Code(s): D64.9 - Anemia, unspecified (9) Depressed affect Current Visit: No Status: Chronic (10) Diabetes 1.5, 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 (11) HTN (hypertension) Current Visit: No Status: Chronic Qualifiers: Hypertension type: unspecified Qualified Code(s): I10 - Essential (primary ) hypertension (12) Methadone maintenance therapy patient Current Visit: Yes Status: Chronic (13) Peripheral neuropathy Current Visit: No Status: Chronic Qualifiers: Peripheral neuropathy type: polyneuropathy, unspecified Qualified Code(s): G62.9 - Polyneuropathy, unspecified (14) Tobacco use Current Visit: No Status: Chronic - AMA Did Patient Leave Against Medical Advice: No
== END 2019-06-18 09:20 | disposition home or self-care (01) | DRG 773 ==
LOC: YASAS 11:41 → Y6N 15:54
PROVIDERS: ADMIT Allergy & Immunology; ATTEND Allergy & Immunology
PROC: HZ2ZZZZ Detoxification Services for Substance Abuse Treatment (ICD-10-PCS; principal; 2019-06-15)
DX: F10.230 Alcohol dependence with withdrawal, uncomplicated (principal); F11.20 Opioid dependence, uncomplicated; F13.20 Sedative, hypnotic or anxiolytic dependence, uncomplicated; F12.10 Cannabis abuse, uncomplicated; F17.210 Nicotine dependence, cigarettes, uncomplicated; F43.10 Post-traumatic stress disorder, unspecified; F41.9 Anxiety disorder, unspecified; G62.9 Polyneuropathy, unspecified; D50.9 Iron deficiency anemia, unspecified; H91.93 Unspecified hearing loss, bilateral; I10 Essential (primary) hypertension; E11.9 Type 2 diabetes mellitus without complications; Z79.4 Long term (current) use of insulin; R45.89 Other symptoms and signs involving emotional state
CPT/HCPCS: 36415; 80053; 82962; 85027; 86593